=== PATIENT | male | born 1945 | race Caucasian/White ===

== ENCOUNTER → 2016-12-23 | Day surgery (SDC) | payer MEDICARE, OTHER ==
[~2016-12-23] MED LIST: AMBIEN PO; APRESOLINE PO; ASPIRIN81 MG PO; B-12500 MCG PO; BUMEX2 MG PO; CATAPRES-TTS-30.3 M1 EXT; CATAPRES0.3 MG PO; CELEXA PO; CHEWABLE ASPIRI81 MG PO; COREG12.5 MG PO; COUMADIN5 MG PO; CYANOCOBAL1000 MCG/1 INJ; EFFEXOR75 M2 PO; FOLIC ACID1 MG PO; GLYBURIDE1.25 MG PO; GLYBURIDE2.5 M1 PO; IMMODIUM; KCL PO; LANTUS100 U/ML SUBQ; LASIX PO; LISINOPRIL PO; MAGNESIUM400 M1; MAGNESIUM400 MG PO; MICRONASE1.25 MG PO; NEURONTIN100 MG PO; PRINIVIL40 MG PO; THIAMINE HCL50 MG; TOPROL XL100 MG PO; VIT B-12 PO; VITAMIN B-150 MG PO; ZAROXYLYN PO; ZESTRIL40 MG PO; ZOCOR PO
--- NOTE | ~2016-12-23 | OR ---
Unit #: [id number] #: [id number] Patient: MAYTE JARAMILLO [id number] [address] [address] [id number] O MR#: [id number] NAME: MAYTE JARAMILLO ROOM: Date of Procedure: 12/23/2016 Admission Date: 12/23/2016 Surgeon: Alex Arvizu M.D. : 1945 Attending Physician: Alex Arvizu M.D. Primary Care Physician: Brian Beasley M.D. SURGERY CENTER OPERATIVE NOTE PROCEDURE PERFORMED Lumbar epidural steroid injection under x-ray guided needle placement with provider administered conscious sedation. PREOPERATIVE DIAGNOSES 1. Acute lumbar radiculitis. 2. Spinal stenosis, lumbosacral spine. 3. Degenerative joint disease, lumbosacral spine. 4. Degenerative disk disease, lumbosacral spine. INDICATIONS FOR PROCEDURE The patient presents today with years long history of chronic intermittent lumbar radicular pain, which over the course of the past few months has become chronic in nature, unremitting, and advancing in a crescendo pattern, which is no longer responsive to his ongoing continuous conservative measures. It has begun to affect his daily living activities and he presents today referred for evaluation for epidural steroid injection. After discussing risks and benefits of proceeding today with a lumbar approach epidural steroid injection, the patient agreed this would be the appropriate course of action. DESCRIPTION OF PROCEDURE He was then taken to the operating room, where he was prepped and draped in sterile manner. Standard monitors were applied. He was sedated with 2 mg of IV Versed and lumbar epidural space accessed at the L4-L5 level using loss of resistance technique and x-ray guidance. Needle placement was confirmed with injection of 2 mL of Omnipaque. Approximately 60% to 70% of dye flow was in the superior direction and there was about 20% to 30% inferior flow of the dye. This is considered acceptable and the patient received an injectate containing 2 mL normal saline, 2 mL of 0.25% bupivacaine, and 80 mg of methylprednisolone. He tolerated this procedure well. He was discharged home with followup instructions, which include return to this clinic on 01/06/2017, at which point he will be evaluated and most likely receive a L3-L4 and L5-S1 dual-needle technique. With that said, he will also be evaluated with an unenhanced CT scan. In the meantime, as I suspect he may well have some component of facet arthrosis contributing to his symptoms. Dictated by... Alex Arvizu M.D. /[facility] Unit #: [id number] #: [id number] Patient: MAYTE JARAMILLO TD: 12/23/2016 21:32 JOB #: [id number] CC: Paulo Granda M.D. SURGERY CENTER OPERATIVE NOTE Page 1 of 1 X Mehul Arvizu MD X PROCEDURE OPERATIVE NOTE
== END | disposition home or self-care (01) ==
LOC: CCSC 09:38
DX: M51.17 Intervertebral disc disorders with radiculopathy, lumbosacral region (principal); M48.07 Spinal stenosis, lumbosacral region
CPT/HCPCS: J1040; J2250

== ENCOUNTER → 2017-01-06 | Outpatient (CLI) | payer MEDICARE, OTHER ==
--- NOTE | ~2017-01-06 | CT98 ---
[facility] A Service of [facility] & [facility] RADIOLOGY TEXT RESULTS PATIENT: MAYTE JARAMILLO LOCATION: [facility] : [birth year] UNIT #: [id number] AGE: [address]: Mehul Arvizu MD SEX: M ORDER DR: [id number] [facility] [address] [place], [place] [address] [id number] O MR#: [id number] Acc #: [id number] NAME: MAYTE JARAMILLO : 1945 SEX: M STUDY DATE/TIME: 01/06/2017 10:55 UNIT: [facility] ROOM: STUDY DESCRIPTION: CT Lumbar Spine Wo Cont Attending Physician: Alex Arvizu M.D. Ordering Physician: Alex Arvizu M.D. Primary Care Physician: Brian Beasley M.D. MEDICAL IMAGING REPORT This report is preliminary unless electronic signature is present EXAM Lumbar spine CT, 01/06/2017 PROCEDURE Axial unenhanced lumbar spine CT with multiplanar reformats. This CT exam was performed with one or more of the following radiation dose reduction techniques: automatic exposure control, adjustment of mA and/or kV according to patient size, and iterative reconstruction. CLINICAL HISTORY Chronic lifelong low back pain. No recent trauma. FINDINGS There is a grade 1, 4-5 degenerative anterolisthesis without pars defect and there is a slight 5-1 retrolisthesis. There is no lumbar fracture but there is fracture and bony dissolution and height loss at T12 about. It is about 80% height loss overall. Residual bone is sclerotic. There is no surrounding soft tissue inflammatory change. No other bone lesions are seen. There is a right renal lower pole probable cyst about 3.0 cm in size but incompletely evaluated here. The adjacent soft tissues are otherwise unremarkable. At L1-2, there is mild degenerative canal stenosis without foraminal stenosis. At 2-3, disc and endplate change and facet arthropathy cause mild canal stenosis and minimal foraminal narrowing on the left and none on the right. At 3-4, disc and endplate change and facet arthropathy cause [id number] canal stenosis and moderate right and minimal left STS. [facility] A Service of [facility] & [facility] RADIOLOGY TEXT RESULTS PATIENT: MAYTE JARAMILLO LOCATION: [facility] : [birth year] UNIT #: [id number] AGE: [address]: Mehul Arvizu MD SEX: M ORDER DR: foraminal stenosis. At 4-5, disc and endplate change and facet arthropathy cause moderate canal stenosis and moderate or even moderate to severe right and moderate left foraminal stenosis. At 5-1, there is degenerative change without substantial canal stenosis and moderate left and right foraminal stenosis. IMPRESSION 1. Multilevel degenerative change with canal and foraminal narrowing detailed above. 2. At T12, there is a chronic-appearing compression fracture with bony sclerosis and perhaps fragmentation and/or bony dissolution. There is no surrounding soft tissue change but the exact etiology is unclear. There does not appear to be active discitis or osteomyelitis. Bony retropulsion at the level of the fracture causes moderate canal stenosis. 3. There is again no acute appearing component and probably the findings are the result of a chronic fracture and avascular necrosis. If old images could be obtained for comparison, that might prove helpful. The finding is apparently new since September 12, 2015. 4. No other bone lesions are seen. If there is concern about a more aggressive process, a total body bone scan could be considered, but chronic change is suspected, though again new since August 2015. Dictated by... Alvaro Hung M.D. THIS IS AN ELECTRONICALLY VERIFIED REPORT Alvaro Hung M.D. at 01/11/2017 3:28 PM VICTORINA/rubén TD: 01/06/2017 14:55 JOB #: [id number] MEDICAL IMAGING REPORT Page 1 of 1 COPY
== END | disposition home or self-care (01) ==
LOC: CCAT 09:51 → CCSC 09:51 → EDSTATUS 10:45
DX: M47.9 Spondylosis, unspecified (principal); M84.48XA Pathological fracture, other site, initial encounter for fracture; M48.04 Spinal stenosis, thoracic region
CPT/HCPCS: 72131; J1040; J2250

== ENCOUNTER → 2017-01-20 | Day surgery (SDC) | payer MEDICARE, OTHER ==
--- NOTE | ~2017-01-20 | OR ---
Unit #: [id number] #: [id number] Patient: MAYTE JARAMILLO [id number] [address] [address] [id number] O MR#: [id number] NAME: MAYTE JARAMILLO ROOM: Date of Procedure: 01/20/2017 Admission Date: 01/20/2017 Surgeon: Alex Arvizu M.D. : 1945 Attending Physician: Mehul Arvizu Primary Care Physician: Brian Beasley M.D. SURGERY CENTER OPERATIVE NOTE PROCEDURE PERFORMED Lumbar epidural steroid injection under x-ray guided needle placement with provider administered conscious sedation. PREOPERATIVE DIAGNOSES 1. Acute lumbar radiculitis. 2. Spinal stenosis, lumbosacral spine. 3. Degenerative joint disease, lumbosacral spine. 4. Degenerative disk disease, lumbosacral spine. 5. Facet arthralgia. 6. Facet arthrosis, lumbosacral spine. INDICATIONS FOR PROCEDURE The patient presents today status post one previous lumbar approach epidural steroid injection for an acute radiculitis, which had failed to respond to conservative therapy. The patient states he got some relief with the epidural steroid injection; however, it was not complete nor it was completely long lasting; however, it did appear to be significant enough that the patient had an underlying facet arthralgia unmasked during the interim between his first visit and today. After discussing risks and benefits of proceeding today with a second lumbar approach epidural steroid injection as well as a referral to [facility] for potential radiofrequency ablation, the patient agreed this would be the appropriate course of action. DESCRIPTION OF PROCEDURE He was then taken to the operating room, where he was prepped and draped in a sterile manner. Standard monitors were applied. He was sedated with 2 mg of IV Versed and the lumbar epidural space accessed at the L4-L5 level using loss of resistance technique and x-ray guidance. Needle placement was confirmed with injection of 2 mL of Omnipaque. Total x-ray time for this needle placement was 4 seconds. Following successful needle placement confirmation at the L4-L5 level, the patient received an injectate containing 4 mL normal saline, 80 mg of methylprednisolone. He tolerated this procedure well. He was discharged home with followup instructions, which include an offer to return to this clinic as early as 04/28/2017 if we could be of further service to him evaluated and receive potential RFA by [facility] in the interim. Dictated by... Alex Arvizu M.D. Unit #: [id number] #: [id number] Patient: MAYTE JARAMILLO JRG/modl TD: 01/20/2017 11:48 JOB #: [id number] CC: Paulo Granda M.D. SURGERY CENTER OPERATIVE NOTE Page 1 of 1 X Mehul Arvizu MD PROCEDURE OPERATIVE NOTE
== END | disposition home or self-care (01) ==
LOC: CCSC 08:27
DX: M51.17 Intervertebral disc disorders with radiculopathy, lumbosacral region (principal); M47.27 Other spondylosis with radiculopathy, lumbosacral region; M48.07 Spinal stenosis, lumbosacral region; I50.9 Heart failure, unspecified; N19 Unspecified kidney failure; J44.9 Chronic obstructive pulmonary disease, unspecified; Z87.01 Personal history of pneumonia (recurrent); Z79.82 Long term (current) use of aspirin; Z79.899 Other long term (current) drug therapy; Z79.01 Long term (current) use of anticoagulants; Z79.4 Long term (current) use of insulin; Z98.1 Arthrodesis status; Z96.652 Presence of left artificial knee joint
CPT/HCPCS: 82947; J1040; J2250